=== PATIENT | female | born 1955 | race Caucasian/White ===

== ENCOUNTER → 2016-11-13 | Outpatient (CLI) | payer OTHER ==
--- NOTE | 2016-11-13 13:34 | CONS ---
DATE OF CONSULTATION: 11/13/2016 CONSULTATION/NEW PATIENT EVALUATION HISTORY OF PRESENT ILLNESS/SLEEP-WAKE EVALUATION: A 61-year-old lady who has been evaluated in the Sleep Center for significant excessive daytime sleepiness and snoring. SLEEP SCHEDULE: Patient's usual sleep schedule from around 7:00 p.m. to 6:30 a.m. FALLING ASLEEP: No problems with falling asleep. DURING SLEEP: She has loud snoring according to . She grinds her teeth. He also hears of episodes of possible choking when she sleeps. She wakes up from sleep 3 times with nocturia, dry mouth, panic attack, restless legs, positive history of sleeptalking. DURING THE DAY/WAKE STATE: In the morning patient wakes up tired, has difficulties to pay attention, falling asleep during the day. According to her she can sleep all day and take naps multiple times. [place] Sleepiness Scale significantly increased to 19. She worries about her sleep. She has problems with memory and concentration, irritability, depression, and anxiety. PAST MEDICAL HISTORY: Positive for hypothyroidism, depression, anxiety, knee problem, DVT of the left leg after surgery with pulmonary embolism. PAST SURGICAL HISTORY: Total left knee replacement, cholecystectomy, lap band surgery. MEDICATIONS: Aspirin, Cymbalta, levothyroxine, Coumadin, Percocet, Xanax, Zoltan, medical marijuana. SOCIAL HISTORY: Negative for smoking. Alcohol consumption: None. REVIEW OF SYSTEMS: Significant excessive daytime sleepiness. Patient indicated that she could sleep anytime and for the whole day. Pain in her knees. No fevers. No double vision. No recent chest pain. No shortness of breath. No abdominal pain. No bleeding episodes. No blood in urine. No seizure episodes. FAMILY HISTORY: Hypertension fibromyalgia, arthritis, headaches, snoring, thyroid problems, anemia, restless legs. PHYSICAL EXAMINATION: GENERAL: A 61-year-old lady without distress. VITAL SIGNS: BP 142/79, HR 70, RR 16. Height 5 foot 2, weight 241. BMI 44. Neck 14-1/2 inches in circumference. Temperature 97.6. Oxygen saturation at room air 98%. HEENT: PERRLA, EOMI. Evaluation of oropharynx showed extremely low position of soft palate. Small nasal passages. Slight restriction of nasal breathing. NECK: Supple. No JVD. Thyroid is not palpable. LUNGS: Clear to percussion and to auscultation. Good air exchange. No wheezing or rhonchi. HEART: S1, S2 regular. No murmurs, gallops or rubs. ABDOMEN: Obese. Soft and nontender. Bowel sounds are present. No organomegaly appreciated. EXTREMITIES: No clubbing or cyanosis. ELECTRICAL REPAIRER: Awake, alert, and oriented x3. Cranial nerves 2 to 7 intact. There is no fasciculation or atrophy noted. No focal deficits observed. IMPRESSION: 1. Snoring, awakenings from sleep with choking, extremely low position of soft palate, significant excessive daytime sleepiness. [place] Sleepiness Scale is 19. Obstructive sleep apnea-hypopnea syndrome. 2. Obesity, body mass index of 44. 3. Depression. 4. Anxiety. 5. Status post total left knee replacement. 6. History of for deep venous thrombosis of left after surgery. 7. History of pulmonary embolism secondary to developing deep venous thrombosis. 8. Hypothyroidism. 9. Status post cholecystectomy. 10. Status post lap band surgery. 11. Pain in the knees. PLAN: 1. Polysomnography for evaluation of patient's breathing during sleep. 2. CPAP/BiPAP titration if sleep study confirms obstructive sleep apnea-hypopnea syndrome. 3. Preferable position during sleep on the side. 4. No driving if patient feels any sleepiness. Patient is aware of civil and criminal liability for unsafe driving. 5. I will see patient for follow-up visit to explain results of the testing and following plan. Thank you very much for referring this patient for consultation Sincerely, Gamaliel Giffodr MD, PhD, FAASM. Diplomat of [place] [employer], Sleep Medicine Board by [employer] [employer] [employer] G[employer]r of [facility] [place]
== END ==
LOC: SLEEP 11:38
PROVIDERS: ATTEND Internal Medicine
DX: G47.33 Obstructive sleep apnea (adult) (pediatric) (principal); E66.9 Obesity, unspecified; F32.9 Major depressive disorder, single episode, unspecified; F41.9 Anxiety disorder, unspecified; E03.9 Hypothyroidism, unspecified; Z96.652 Presence of left artificial knee joint; Z86.718 Personal history of other venous thrombosis and embolism; Z86.711 Personal history of pulmonary embolism; Z79.82 Long term (current) use of aspirin; Z79.01 Long term (current) use of anticoagulants; Z79.891 Long term (current) use of opiate analgesic
CPT/HCPCS: 99211

== ENCOUNTER → 2017-05-28 | Outpatient (CLI) | payer OTHER ==
--- NOTE | 2017-05-28 17:29 | PN ---
PROGRESS NOTE DATE OF SERVICE: 05/28/2017 62-year-old lady who has been followed in Sleep Center for treatment of obstructive sleep apnea-hypopnea syndrome. In November 2016 patient had been diagnosed with severe obstructive sleep apnea-hypopnea syndrome by results of polysomnogram and I discussed results of the sleep study with the patient in details. She did not come to Sleep Center since she had a sleep study done. She has apnea-hypopnea index 60.6 with oxygen desaturation to 81.9%. No REM sleep at all documented in her sleep study. During titration her respiration was on control with BiPAP at the pressure of 15/11 cm of water. At that time, patient was started on treatment with positive air pressure but was not able to tolerate pressure because of pain in her mouth related to pain in her teeth while she is using her CPAP. She is used nasal mask but pressure of air went to her mouth and created some irritation for her teeth. So at that time patient stopped using her treatment and returned her equipment. At the present time, the patient continued to have excessive daytime sleepiness. [place] Sleepiness Scale is 15, although according to her, she was able to sleep through the night in different room comparing where she was before. [place] Sleepiness Scale today is 15. MEDICATIONS: Aspirin, Cymbalta, Coumadin was stopped, Percocet, Xanax was stopped, levothyroxine, medical marijuana. PHYSICAL EXAM: Patient in no distress. BP 129/85, HR 82, RR 16, weight 245, which is 4 pounds more than during the sleep study. Temperature 98.1, oxygen saturation room air 99%. HEENT: PERRLA, EOMI. Evaluation of oropharynx showed extremely low position of soft palate. Some restriction of nasal breathing bilaterally. NECK: Supple, no JVD. Thyroid is not palpable. LUNGS: Clear to percussion and to auscultation. Good air exchange. No wheezing or rhonchi. HEART S1, S2 regular. No murmurs, gallops, or rubs. ABDOMEN Obese. Soft and nontender. Bowel sounds are present. No organomegaly appreciated. EXTREMITIES No clubbing or cyanosis. BORING AND FILLING MACHINE OPERATOR Awake, alert, and oriented X3. Cranial nerves 2 to 7 intact. There is no fasciculation or atrophy. noted. No focal deficits observed. IMPRESSION: 1. Severe obstructive sleep apnea-hypopnea syndrome. Apnea-hypopnea index 60.6 with oxygen desaturation to 81.9%. 2. Depression. 3. Anxiety. 4. History of pulmonary embolism. 5. History of DVT. 6. Status post cholecystectomy. 7. Status post lap band surgery. PLAN: 1. The patient needs treatment for obstructive sleep apnea-hypopnea syndrome as soon as possible. I believe that possibly the pressure which was recommended before was higher than possibly to use. 2. Losing weight. 3. Sleep hygiene with regular time in bed for at least 8 hours. 4. No driving if feeling any sleepiness. Thank you very much for allowing me to participate in management of your patient. Sincerely, Gamaliel Gifford MD, PhD, FAASM Diplomat of [employer] Real Estate Specialist of [facility] [place] MMLUCÍAL / NATIN: [id number] /
== END ==
LOC: SLEEP 14:31
PROVIDERS: ATTEND Internal Medicine
DX: G47.33 Obstructive sleep apnea (adult) (pediatric) (principal); F32.9 Major depressive disorder, single episode, unspecified; F41.9 Anxiety disorder, unspecified; Z86.718 Personal history of other venous thrombosis and embolism; Z86.711 Personal history of pulmonary embolism; Z90.49 Acquired absence of other specified parts of digestive tract; Z98.890 Other specified postprocedural states; Z79.82 Long term (current) use of aspirin; Z79.899 Other long term (current) drug therapy; Z79.01 Long term (current) use of anticoagulants

== ENCOUNTER → 2019-01-04 | Outpatient (CLI) | payer OTHER ==
[2019-01-04 16:26] VITALS: BP 190/106; PULSE 80; TEMP 99; BMI 50.3
--- NOTE | 2019-01-04 17:04 | P.BASOAP ---
Subjective Progress Note Date: 01/04/19 Principal diagnosis: Morbid obesity Patient is known to our service. She is not sure when she saw us last for her lap band but believes her band was emptied at that time because of an ERCP being for performed. She states they were unable to pass the scope with the band present filled with fluid. Doing well currently. No nausea or vomiting. No GERD symptoms. He is considering conversion to sleeve gastrectomy or bypass. Admits that she has not looked into the surgeries much thus far. With the patient's lap band she was down in the 220s. Currently at 284. She is willing to try the lap band once again. Objective - Vital Signs Vital signs: Vital Signs Temp 99 F 01/04/19 16:21 Pulse 80 01/04/19 16:21 Resp BP 190/106 01/04/19 16:21 Pulse Ox Intake & Output 01/03/19 01/04/19 01/04/19 18:59 06:59 18:59 Weight 128.82 kg - Exam Abdomen: Soft, nontender, nondistended Assessment/Plan (1) Morbid obesity Narrative/Plan: Options discussed with the patient in detail. At this time we will try utilizing the band once again. The patient would like to see the dietitian as well as this time. We'll add 1 mL of fluid to the patient's lap band. Follow- up 1-2 months. The patient's lap band port was palpated. The site was aseptically prepped. The Simons needle was advanced into the port. A total of 1 ml of fluid was added. Pressure was held and a sterile dressing was applied. Plan: Date: 01/04/19 Initial Weight: Initial BMI: Current Weight: 128.82 kg Current BMI: 50.3 Type of Surgery: Total Volume in Band: 1 Previous Volume: Volume Removed: Volume Added: 1 Band Size:
== END ==
LOC: BARWHC3 15:09
PROVIDERS: ATTEND Surgery
DX: E66.01 Morbid (severe) obesity due to excess calories (principal); Z68.43 Body mass index [BMI] 50.0-59.9, adult; Z98.84 Bariatric surgery status
CPT/HCPCS: 99212

== ENCOUNTER → 2019-02-01 | Outpatient (CLI) | payer OTHER ==
--- NOTE | 2019-02-01 15:36 | P.BASOAP ---
Subjective Progress Note Date: 02/01/19 Principal diagnosis: Morbid obesity Patient returns 1 month after recent fill. She had 1 mL of fluid added last visit. Has no restriction currently. Would like a larger fill at this time. No GERD symptoms. No vomiting. Objective - Exam Physical exam: General: Well-developed, well-nourished HEENT: Normocephalic, sclerae nonicteric Abdomen: Nontender, nondistended Extremities: No edema Neuro: Alert and oriented Assessment/Plan (1) Morbid obesity Narrative/Plan: The patient I agreed to add 2 mL to her band. While I was adding the patient's fluid the patient felt some epigastric tightness. We backed off on our planned adjustment. A total of 1 mL was added. Patient was then able to tolerate liquids without difficulty. Follow-up one month. Plan: Date: Initial Weight: Initial BMI: Current Weight: Current BMI: Type of Surgery: Total Volume in Band: 1 Previous Volume: Volume Removed: Volume Added: Band Size:
[2019-02-01 16:55] VITALS: BP 164/92; PULSE 66; TEMP 98.2; BMI 50.5
== END | disposition home or self-care (01) ==
LOC: BARWHC3 14:33
PROVIDERS: ATTEND Surgery
DX: E66.01 Morbid (severe) obesity due to excess calories (principal); Z68.43 Body mass index [BMI] 50.0-59.9, adult
CPT/HCPCS: 99212

== ENCOUNTER → 2019-03-01 | Outpatient (CLI) | payer OTHER ==
[2019-03-01 15:24] VITALS: BP 122/79; PULSE 59; TEMP 98.4; BMI 49.0
--- NOTE | 2019-03-01 16:02 | P.BASOAP ---
Subjective Progress Note Date: 03/01/19 Principal diagnosis: Morbid obesity Patient returns today for recheck. She would like more fluid added to her band. She is now feeling slight restriction she believes. No nausea or vomiting. No GERD symptoms. Objective - Vital Signs Vital signs: Vital Signs Temp 98.4 F 03/01/19 15:20 Pulse 59 L 03/01/19 15:20 Resp BP 122/79 03/01/19 15:20 Pulse Ox Intake & Output 02/28/19 03/01/19 03/01/19 18:59 06:59 18:59 Weight 125.645 kg - Exam Abdomen: Soft, nontender, nondistended Assessment/Plan (1) Morbid obesity Narrative/Plan: Patient would like band adjustment. Under aseptic conditions 0.5 mL added to the band. Total of only approximately 2 mL present after fill. Per recent adjustments should have total of 2.5 mL. We'll check to see volume next visit. Tolerating water at this time. Plan: Date: 03/01/19 Initial Weight: Initial BMI: Current Weight: 125.645 kg Current BMI: 49.0 Type of Surgery: Total Volume in Band: 2.5 Previous Volume: 2 Volume Removed: Volume Added: 0.5 Band Size:
== END | disposition home or self-care (01) ==
LOC: BARWHC3 14:33
PROVIDERS: ATTEND Surgery
DX: Z46.51 Encounter for fitting and adjustment of gastric lap band (principal); E66.01 Morbid (severe) obesity due to excess calories; Z68.42 Body mass index [BMI] 45.0-49.9, adult
CPT/HCPCS: 99211

== ENCOUNTER → 2019-04-05 | Outpatient (CLI) | payer OTHER ==
--- NOTE | 2019-04-05 13:32 | P.BASOAP ---
Subjective Progress Note Date: 04/05/19 Principal diagnosis: Morbid obesity Patient for a lap band adjustment. The patient still feels little restriction. She was seen last visit I was somewhat concerned that there may be a slight leak. No nausea or vomiting. No dysphagia. No heartburn. Objective - Vital Signs Vital signs: Vital Signs Temp 99 F 04/05/19 13:10 Pulse 71 04/05/19 13:10 Resp 16 04/05/19 13:10 BP 141/97 04/05/19 13:10 Pulse Ox Intake & Output 04/04/19 04/05/19 04/05/19 18:59 06:59 18:59 Weight 123.831 kg - Exam Abdomen: Soft, nontender, nondistended Assessment/Plan (1) Morbid obesity Narrative/Plan: Will proceed with band adjustment at this time. 0.5 mL was added aseptically. At this time the band was aspirated and all anticipated 3 mL was present. No leak evident. Follow-up 2-3 months if additional feels necessary. Plan: Date: 04/05/19 Initial Weight: 111.13 kg Initial BMI: 43.4 Current Weight: 123.831 kg Current BMI: 48.3 Type of Surgery: Total Volume in Band: 3.0 Previous Volume: 2.5 Volume Removed: Volume Added: 0.5 Band Size:
== END | disposition home or self-care (01) ==
CPT/HCPCS: 99212

== ENCOUNTER → 2019-05-17 | Outpatient (CLI) | payer OTHER ==
[2019-05-17 13:20] VITALS: BP 110/72; PULSE 81; RESP 16; TEMP 97.8; BMI 47.1
--- NOTE | 2019-05-17 17:19 | P.BASOAP ---
Subjective Progress Note Date: 05/17/19 Principal diagnosis: Morbid obesity Patient doing well today. Requesting a band adjustment. She has had improvement in her restriction since her last fill. No nausea or vomiting. No reflux. Objective - Vital Signs Vital signs: Vital Signs Temp 97.8 F 05/17/19 13:17 Pulse 81 05/17/19 13:17 Resp 16 05/17/19 13:17 BP 110/72 05/17/19 13:17 Pulse Ox Intake & Output 05/16/19 05/17/19 05/17/19 18:59 06:59 18:59 Weight 120.656 kg - Exam Abdomen: Soft, nontender, nondistended Assessment/Plan (1) Morbid obesity Narrative/Plan: Will add 0.2 mL of fluid to the band.The patient's lap band port was palpated. The site was aseptically prepped. The Simons needle was advanced into the port. A total of 0.2 ml of fluid was was added. Pressure was held and a sterile dressing was applied. Plan: Date: 05/17/19 Initial Weight: 111.13 kg Initial BMI: 43.4 Current Weight: 120.656 kg Current BMI: 47.1 Type of Surgery: Total Volume in Band: 3.2 Previous Volume: 3.0 Volume Removed: Volume Added: 0.2 Band Size:
== END | disposition home or self-care (01) ==
LOC: BARWHC3 12:45
PROVIDERS: ATTEND Surgery
DX: E66.01 Morbid (severe) obesity due to excess calories (principal); Z68.42 Body mass index [BMI] 45.0-49.9, adult
CPT/HCPCS: 99212

== ENCOUNTER → 2019-06-14 | Outpatient (CLI) | payer OTHER ==
[2019-06-14 16:23] VITALS: BP 127/71; PULSE 67; RESP 16; TEMP 98.3; BMI 46.5
== END | disposition home or self-care (01) ==
LOC: BARWHC3 12:37
PROVIDERS: ATTEND Surgery
DX: Z09 Encounter for follow-up examination after completed treatment for conditions other than malignant neoplasm (principal); Z98.84 Bariatric surgery status; E66.01 Morbid (severe) obesity due to excess calories; Z68.42 Body mass index [BMI] 45.0-49.9, adult
CPT/HCPCS: 99211

== ENCOUNTER → 2019-07-14 | Outpatient (CLI) | payer OTHER ==
[2019-07-14 13:44] VITALS: BP 149/96; PULSE 64; TEMP 98.2; BMI 46.5
--- NOTE | 2019-07-14 21:01 | P.BASOAP ---
Subjective Progress Note Date: 07/14/19 Principal diagnosis: Morbid obesity Patient returns today for evaluation. Her weight has maintained at the same. She is interested in a band adjustment. Denies nausea vomiting or dysphagia. Objective - Vital Signs Vital signs: Vital Signs Temp 98.2 F 07/14/19 13:42 Pulse 64 07/14/19 13:42 Resp BP 149/96 07/14/19 13:42 Pulse Ox Intake & Output 07/14/19 07/14/19 07/15/19 06:59 18:59 06:59 Weight 119.295 kg - Exam Abdomen: Soft, nontender, nondistended Assessment/Plan (1) Morbid obesity Narrative/Plan: Will add 0.2 mL for a total of 3.4 mL. Follow-up 2 months. Plan: Date: 07/14/19 Initial Weight: 111.13 kg Initial BMI: 43.4 Current Weight: 119.295 kg Current BMI: 46.5 Type of Surgery: Total Volume in Band: 3.4 Previous Volume: Volume Removed: Volume Added: 0.2 Band Size:
== END | disposition home or self-care (01) ==
LOC: BARWHC3 13:11
PROVIDERS: ATTEND Surgery
DX: E66.01 Morbid (severe) obesity due to excess calories (principal); Z68.42 Body mass index [BMI] 45.0-49.9, adult
CPT/HCPCS: 99212

== ENCOUNTER → 2019-09-27 | Outpatient (CLI) | payer OTHER ==
[2019-09-27 13:28] VITALS: BP 132/63; PULSE 152; RESP 16; TEMP 98.3; BMI 44.4
--- NOTE | 2019-09-27 14:06 | P.BASOAP ---
Subjective Progress Note Date: 09/27/19 Principal diagnosis: Morbid obesity Patient returns today for recheck. She has lost 12 pounds since her visit in June. Last visit she had adjustment from 3.2-3.4 mL. She does have occasional episodes of regurgitation probably once per week. Doesn't want any fluid removed. Was actually considering having fluid added. Objective - Vital Signs Vital signs: Vital Signs Temp 98.3 F 09/27/19 13:26 Pulse 152 H 09/27/19 13:26 Resp 16 09/27/19 13:26 BP 132/63 09/27/19 13:26 Pulse Ox Intake & Output 09/26/19 09/27/19 09/27/19 18:59 06:59 18:59 Weight 113.852 kg - Exam Abdomen: Soft, nontender, nondistended Assessment/Plan (1) Morbid obesity Narrative/Plan: She is not interested in removing any fluid. Monitor band at 3.4 mL. Certainly if any further vomiting or regurgitation occurs would once again recommend loosening band. Follow-up 2 months. Plan: Date: 09/27/19 Initial Weight: 111.13 kg Initial BMI: 43.4 Current Weight: 113.852 kg Current BMI: 44.4 Type of Surgery: Total Volume in Band: 3.4 Previous Volume: Volume Removed: Volume Added: Band Size:
== END | disposition home or self-care (01) ==
LOC: BARWHC3 12:53
PROVIDERS: ATTEND Surgery
DX: Z48.815 Encounter for surgical aftercare following surgery on the digestive system (principal); E66.01 Morbid (severe) obesity due to excess calories; Z68.41 Body mass index [BMI] 40.0-44.9, adult; Z98.84 Bariatric surgery status
CPT/HCPCS: 99211

== ENCOUNTER → 2020-01-31 | Outpatient (CLI) | payer OTHER ==
[2020-01-31 14:58] VITALS: BP 142/89; PULSE 72; RESP 16; TEMP 98.1
[2020-01-31 15:45] VITALS: BMI 41.1
--- NOTE | 2020-01-31 16:19 | P.BASOAP ---
Subjective Progress Note Date: 01/31/20 Principal diagnosis: Morbid obesity Patient here today for reevaluation. Last seen in October. Band was filled at that time. Since then she has done well with her weight loss. Almost 20 pounds off. Describes 2 episodes of hiccups. No nausea or vomiting. No GERD or regurgitation. States food sometimes feels slow as it hits the band. Objective - Vital Signs Vital signs: Vital Signs Temp 98.1 F 01/31/20 14:56 Pulse 72 01/31/20 14:56 Resp 16 01/31/20 14:56 BP 142/89 01/31/20 14:56 Pulse Ox Intake & Output 01/30/20 01/31/20 01/31/20 18:59 06:59 18:59 Weight 105.233 kg - Exam Abdomen: Soft, nontender, nondistended Assessment/Plan (1) Morbid obesity Narrative/Plan: Patient overall doing fairly well. Keep Band at current level. Continue dietary and exercise regimen. Plan: Date: 01/31/20 Initial Weight: 111.13 kg Initial BMI: 43.4 Current Weight: 105.233 kg Current BMI: 41.1 Type of Surgery: Total Volume in Band: 3.4 Previous Volume: Volume Removed: Volume Added: Band Size:
== END | disposition home or self-care (01) ==
LOC: BARWHC3 14:38
PROVIDERS: ATTEND Surgery
DX: E66.01 Morbid (severe) obesity due to excess calories (principal); Z68.41 Body mass index [BMI] 40.0-44.9, adult
CPT/HCPCS: 99211

== ENCOUNTER → 2022-11-21 | Outpatient (CLI) | payer MEDICARE, OTHER ==
[2022-11-21 19:34] LABS: T4, Free (Free Thyroxine) 1.48 ng/dL (0.800-1.800)
== END | disposition home or self-care (01) ==
LOC: LABWHC1 11:27
PROVIDERS: ATTEND Family Medicine
DX: E03.9 Hypothyroidism, unspecified (principal)
CPT/HCPCS: 36415; 84439; 84443

== ENCOUNTER 2023-04-10 15:05 | Emergency (ER) | payer MEDICARE, OTHER ==
[2023-04-10 15:20] VITALS: RESP 18; TEMP 97.8
--- NOTE | 2023-04-10 15:44 | ED ---
Chest Pain HPI - General Chief Complaint: Chest Pain Stated Complaint: Chest Pain Time Seen by Provider: 04/10/23 15:19 Source: patient, EMS, RN notes reviewed, old records reviewed Mode of arrival: EMS Limitations: no limitations - History of Present Illness Initial Comments: This is a 67-year-old female today. This patient presents today for evaluation of what she calls angina. Epigastric abdominal pain chest pain which she took nitro for. She then developed headache. Patient states headache is a little persistent but not significant sometime she also gets that when she takes nitro. Epigastric pain is persistent but resolving. She has had history of heart catheterization normal. Patient does have history of high blood pressure no prior history of heart issue or stroke MD Complaint: chest pain, other (Epigastric abdominal pain history of gallbladder removal) -: hour(s) Pain Location: substernal, epigastric Pain Radiation: abdomen Severity: moderate Quality: aching Consistency: constant Improves With: nothing Worsens With: nothing Anginal Symptoms: nausea Other Symptoms: palpitations Treatments Prior to Arrival: none - Related Data Home Medications Medication Instructions Recorded Confirmed Levothyroxine Sodium [Levoxyl] 100 mcg PO DAILY 12/10/15 09/27/19 Spironolactone [Aldactone] 25 mg PO DAILY 12/10/15 09/27/19 HYDROcodone/APAP 5-325MG [[place] 1 tab PO Q6H PRN 09/23/17 09/27/19 5-325] Metoprolol Tartrate [Lopressor] 25 mg PO DAILY 01/05/19 09/27/19 Vortioxetine Hydrobromide 20 mg PO DAILY 01/05/19 09/27/19 [Trintellix] lamoTRIgine [LaMICtal] 25 mg PO DAILY 01/05/19 09/27/19 traZODone HCL [TraZODone HCl] 50 mg PO DAILY 01/05/19 09/27/19 Allergies Allergy/AdvReac Type Severity Reaction Status Date / Time prochlorperazine Allergy Unknown Verified 07/14/19 13:44 [From Compazine] prochlorperazine edisylate Allergy Unknown Verified 07/14/19 13:44 [From Compazine] prochlorperazine maleate Allergy Unknown Verified 07/14/19 13:44 [From Compazine] Review of Systems ROS Statement: Those systems with pertinent positive or pertinent negative responses have been documented in the HPI. ROS Other: All systems not noted in ROS Statement are negative. EKG Findings - EKG Comments: EKG Findings:: EKG sinus 61 CA 183 QRS 100 QTc 412 - EKG Results: EKG: interpreted by BART Past Medical History Past Medical History: CVA/TIA, Fibromyalgia, Hypertension, Thyroid Disorder Additional Past Medical History / Comment(s): TIA- "years ago", varicose veins, "falls easily" History of Any Multi-Drug Resistant Organisms: None Reported Past Surgical History: Bariatric Surgery, Cholecystectomy, Joint Replacement, Tubal Ligation Additional Past Surgical History / Comment(s): lap band, total left knee 11/2015 Past Anesthesia/Blood Transfusion Reactions: Previous Problems w/ Anesthesia Additional Past Anesthesia/Blood Transfusion Reaction / Comment(s): 3 days after EGD - weak legs and arms "from all the gas pumped into me" Past Psychological History: Anxiety Smoking Status: Never smoker Past Alcohol Use History: None Reported Past Drug Use History: Marijuana - Past Family History Mother Family Medical History: Deep Vein Thrombosis (DVT) Father Family Medical History: CVA/TIA Additional Family Medical History / Comment(s): Father had several CVAs. He from a ruptured bowel. General Exam Limitations: no limitations General appearance: alert, in no apparent distress Head exam: Present: atraumatic, normocephalic, normal inspection Eye exam: Present: normal appearance, PERRL, EOMI. Absent: scleral icterus, conjunctival injection, periorbital swelling ENT exam: Present: normal exam, mucous membranes moist Neck exam: Present: normal inspection. Absent: tenderness, meningismus, lymphadenopathy Respiratory exam: Present: normal lung sounds bilaterally. Absent: respiratory distress, wheezes, rales, rhonchi, stridor Cardiovascular Exam: Present: regular rate, normal rhythm, normal heart sounds. Absent: systolic murmur, diastolic murmur, rubs, gallop, clicks GI/Abdominal exam: Present: soft, normal bowel sounds. Absent: distended, tenderness, guarding, rebound, rigid Extremities exam: Present: normal inspection, full ROM, normal capillary refill. Absent: tenderness, pedal edema, joint swelling, calf tenderness Back exam: Present: normal inspection Neurological exam: Present: alert, oriented X3, CN II-XII intact Psychiatric exam: Present: normal affect, normal mood Skin exam: Present: warm, dry, intact, normal color. Absent: rash Course Vital Signs 04/10/23 04/10/23 04/10/23 15:07 16:37 17:36 Temperature 97.8 F Pulse Rate 71 62 51 L Respiratory 18 18 18 Rate Blood Pressure 142/81 137/91 124/78 O2 Sat by Pulse 97 97 98 Oximetry 04/10/23 04/10/23 18:42 18:53 Temperature Pulse Rate 49 L 49 L Respiratory 18 Rate Blood Pressure 101/63 101/63 O2 Sat by Pulse 94 L Oximetry - Reevaluation(s) Reevaluation #1: 04/10/23 19:22 Medical record is reviewed Reevaluation #2: 04/10/23 19:23 Patient symptoms resolved headache improving Reevaluation #3: 04/10/23 19:23 Patient informed results questions answered Studies Chest x-ray negative for acute disease interpreted by me Reevaluation #4: 04/10/23 19:23 Was pt. sent in by a medical professional or institution (Dr. PA, [employer], urgent care, hospital, or care home...) When possible be specific @ -no Did you speak to anyone other than the patient for history (EMS, parent, family, police, friend...)? What history was obtained from this source @ -no Did you review nursing and triage notes (agree or disagree)? Why? @ -agree Are old charts reviewed (outside hosp., previous admission, EMS record, old EKG, old radiological studies, urgent care reports/EKG's, care home records)? Report findings @ -yes Differential Diagnosis (chest pain, altered mental status, abdominal pain women, abdominal pain men, vaginal bleeding, weakness, fever, dyspnea, syncope, headache, dizziness, GI bleed, back pain, seizure, CVA, palpatations, mental health, musculoskeletal)? @ -prior EKG interpreted by me (3pts min.). @ -yes X-rays interpreted by me (1pt min.). @ -yes CT interpreted by me (1pt min.). @ -no U/S interpreted by me (1pt. min.). @ -no What testing was considered but not performed or refused? (CT, X-rays, U/S, labs)? Why? @ -none What meds were considered but not given or refused? Why? @ -none Did you discuss the management of the patient with other professionals (professionals i.e. , PA, [employer], lab, RT, psych nurse, social sciences research scientist, railway signalling engineer, teacher, rating officer, employment evaluator/case manager)? Give summary @ -no Was smoking cessation discussed for >3mins.? @ -no Was critical care preformed (if so, how long)? @ -no Were there social determinants of health that impacted care today? How? (Homelessness, low income, unemployed, alcoholism, drug addiction, tr ansportation, low edu. Level, literacy, decrease access to med. care, long term, rehab)? @ -none Was there de-escalation of care discussed even if they declined (Discuss DNR or withdrawal of care, Hospice)? DNR status @ -no What co-morbidities impacted this encounter? (DM, HTN, Smoking, COPD, CAD, Cancer, CVA, ARF, Chemo, Hep., AIDS, mental health diagnosis, sleep apnea, morbid obesity)? @ -none Was patient admitted / discharged? Hospital course, mention meds given and route, prescriptions, significant lab abnormalities, going to OR and other pertinent info. @ - 67 female with nonspecific chest pain or epigastric pain in nature with history of clean coronary catheterization. Patient has no current chest pain here in the ER feels well can be discharged home. Lab values normal EKG and normal troponin negative Discharge Undiagnosed new problem with uncertain prognosis? @ -no Drug Therapy requiring intensive monitoring for toxicity (Heparin, Nitro, Insulin, Cardizem)? @ -no Were any procedures done? @ -no Diagnosis/symptom? @ -Chest pain Acute, or Chronic, or Acute on Chronic? @ -Acute Uncomplicated (without systemic symptoms) or Complicated (systemic symptoms)? @ -Complicated Side effects of treatment? @ -no Exacerbation, Progression, or Severe Exacerbation? @ -exacerbation Poses a threat to life or bodily function? How? (Chest pain, USA, CT, pneumonia, PE, COPD, DKA, ARF, appy, cholecystitis, CVA, Diverticulitis, Homicidal, Suicidal, threat to staff... and all critical care pts) @ -yes if the cause is acute ACS Reevaluation #5: 04/10/23 19:23 Differential Chest Pain: Stable Angina, Unstable Angina, STEMI, NSTEMI Aortic Dissection, Pneumothorax, Musculoskeletal, Esophageal Spasm GERD, Cholecystitis, Pancreatitis, Zoster, this is not meant to be an all-inclusive list. Chest Pain MDM - MDM 67 female with nonspecific chest pain or epigastric pain in nature with history of clean coronary catheterization. Patient has no current chest pain here in the ER feels well can be discharged home. Lab values normal EKG and normal troponin negative Disposition Clinical Impression: Atypical chest pain, Chest pain Disposition: HOME SELF-CARE Condition: Good Instructions (If sedation given, give patient instructions): Chest Pain (ED) Is patient prescribed a controlled substance at d/c from ED?: No Referrals: Zenia Travis MD [Primary Care Provider] - 1-2 days Time of Disposition: 19:10
[2023-04-10 16:45] LABS: Basophils % (A) 0 %; Eosinophils % (A) 1 %; HCT 37.9 % (34.0-46.0); HGB 12.9 gm/dL (11.4-16.0); Lymphocytes # (A) 1.8 k/uL (1.0-4.8); Lymphocytes % (A) 32 %; MCH 32.3 pg (25.0-35.0); MCV 95.1 fL (80.0-100.0); Mean Platelet Volume 11.6; Monocytes # (A) 0.3 k/uL (0-1.0); Monocytes % (A) 6 %; Neutrophils # (A) 3.4 k/uL (1.3-7.7); Neutrophils % (A) 59 %; Platelet Count 152 k/uL (150-450); RBC 3.99 m/uL (3.80-5.40); RDW 12.6 % (11.5-15.5); WBC 5.7 k/uL (3.8-10.6)
--- NOTE | 2023-04-10 16:54 | XR ---
EXAMINATION TYPE: XR chest 2V DATE OF EXAM: 04/10/2023 4:49 PM COMPARISON: Chest radiographs from 09/23/2017 TECHNIQUE: XR chest 2V Frontal and lateral views of the chest. CLINICAL INDICATION:Female, 67 years old with history of Chest Pain; FINDINGS: Lungs/Pleura: There is no evidence of pleural effusion, focal consolidation, or pneumothorax. Pulmonary vascularity: Unremarkable. Heart/mediastinum: Cardiomediastinal silhouette is unremarkable. Atherosclerotic calcifications are seen in the aorta. Musculoskeletal: No acute osseous pathology. IMPRESSION: No acute cardiopulmonary disease/process.
[2023-04-10] MEDS ORDERED: KETOROLAC 15 MG/ML 1 ML VIAL IVP STA (17:01)
[2023-04-10 17:02] LABS: Partial Thromboplastin Time 24.1 sec (22.0-30.0); Prothrombin Time 10.6 sec (9.0-12.0)
[2023-04-10 17:10] LABS: ALT 13 U/L (4-34); AST 24 U/L (14-36); African American GFR (CKD) 80 (>60 ml/min/1.73 sqM); Albumin 4.4 g/dL (3.5-5.0); Alkaline Phosphatase 84 U/L (38-126); Anion Gap 12 mmol/L; Blood Urea Nitrogen 14 mg/dL (7-17); Calcium 9.2 mg/dL (8.4-10.2); Carbon Dioxide 24 mmol/L (22-30); Chloride 102 mmol/L (98-107); Glucose 94 mg/dL (74-99); Lipase 50 U/L (23-300); Magnesium 1.6 mg/dL (1.6-2.3); Non-African American GFR(CKD) 69 (>60 ml/min/1.73 sqM); Potassium 3.6 mmol/L (3.5-5.1); Sodium 138 mmol/L (137-145); Total Bilirubin 0.6 mg/dL (0.2-1.3); Total Protein 7.5 g/dL (6.3-8.2)
[2023-04-10 17:16] LABS: NT-Pro-B-Type Natriuretic Pept 111 pg/mL
[2023-04-10 17:19] LABS: Large Platelets Present; RBC Morphology Normal
[2023-04-10 18:43] VITALS: BP 101/63; PULSE 49
== END 2023-04-10 19:39 | disposition home or self-care (01) ==
LOC: EC 15:05
DX: R07.89 Other chest pain (principal); I10 Essential (primary) hypertension; E07.9 Disorder of thyroid, unspecified; F41.9 Anxiety disorder, unspecified; F12.90 Cannabis use, unspecified, uncomplicated; Z79.890 Hormone replacement therapy; Z79.899 Other long term (current) drug therapy; Z88.8 Allergy status to other drugs, medicaments and biological substances; Z90.49 Acquired absence of other specified parts of digestive tract; Z86.73 Personal history of transient ischemic attack (TIA), and cerebral infarction without residual deficits
CPT/HCPCS: 36415; 93005; 85379; 83880; 80053; 83690; 83735; 84484; 85025; 85610; 85730; 71046; 99285; 96374; J1885